=== PATIENT | male | born 1950 | race Two or more races ===

== ENCOUNTER 2020-02-22 11:03 | Outpatient (CLI) | payer OTHER | END 2020-02-22 11:14 | disposition home or self-care (01) | LOC: TOM 11:03 | PROVIDERS: ATTEND Urology | DX: N20.0 Calculus of kidney (principal) ==

== ENCOUNTER 2024-10-12 07:06 | Outpatient (CLI) | payer OTHER | END 2024-10-12 07:07 | disposition home or self-care (01) | LOC: NUCLEAR 07:06 | PROVIDERS: ATTEND Internal Medicine | DX: I20.9 Angina pectoris, unspecified (principal) | CPT/HCPCS: 78452; 93017; A9500; J0153 ==